=== PATIENT | female | born 1950 | race Caucasian/White ===

== ENCOUNTER 2017-05-12 07:10 | Emergency (ER) | payer OTHER ==
[~2017-05-12] VITALS: Ht 167.6 cm; Wt 61.2 kg
[~2017-05-12 07:10] MED LIST: Coreg PO; LASIX20 MG PO; LEVAQUIN750 MG PO; MEDROL4 MG PO; SLOW-MAG64 M1 PO; TUSSIONEX PENNKI5 ML PO; VASOTEC 2.5MG TAB PO
== END 2017-05-12 08:37 | disposition home or self-care (01) ==
LOC: ER 07:10
DX: R60.0 Localized edema (principal); R06.02 Shortness of breath; T78.40XA Allergy, unspecified, initial encounter; X58.XXXA Exposure to other specified factors, initial encounter